=== PATIENT | female | born 1960 ===

== ENCOUNTER 2016-11-16 07:19 | Day surgery (SDC) | payer MEDICAID ==
[2016-11-16] MEDS ORDERED: Lactated Ringer's 500 ML IV ONE (07:55)
[2016-11-16 08:27] VITALS: O2SAT 100
[2016-11-16] MEDS ORDERED: Propofol 10 mg/ml Inj (20 ML) ONE (09:24)
[2016-11-16 09:49] VITALS: TEMP 96.8
[2016-11-16 10:00] VITALS: BP 110/70; PULSE 62; RESP 17
== END 2016-11-16 11:00 | disposition home or self-care (01) ==
LOC: H.ENDO 07:19
PROVIDERS: ATTEND Internal Medicine Gastroenterology
DX: Z12.11 Encounter for screening for malignant neoplasm of colon (principal); F41.8 Other specified anxiety disorders; K64.0 First degree hemorrhoids
CPT/HCPCS: 45378; J2001; J2704; J7120